=== PATIENT | male | born 1960 | race Caucasian/White ===

== ENCOUNTER → 2020-11-24 | Outpatient (CLI) | payer OTHER ==
[2020-11-24 15:11] LABS: Appearance,Urine Clear (Clear); Bilirubin,Urine Negative (Negative); Blood,Urine Negative (Negative); Color,Urine Yellow; Glucose,Urine (UA) Negative (Negative); HCT 45.6 % (39.0-53.0); HGB 16.2 gm/dL (13.0-17.5); Ketones,Urine Negative (Negative); Leukocyte Esterase,Urine Negative (Negative); MCH 32.6 pg (25.0-35.0); MCHC 35.6 g/dL (31.0-37.0); MCV 91.6 fL (80.0-100.0); Nitrite,Urine Negative (Negative); PH, Urine 6.5 (5.0-8.0); Platelet Count 206 k/uL (150-450); Protein,Urine Negative (Negative); RBC 4.98 m/uL (4.30-5.90); RDW 12.5 % (11.5-15.5); Specific Gravity,Urine 1.013 (1.001-1.035); Urobilinogen,Urine <2.0 mg/dL (<2.0); WBC 7.9 k/uL (3.8-10.6)
[2020-11-24 15:18] LABS: ALT 16 U/L (4-49); AST 21 U/L (17-59); African American GFR (CKD) >90 (>60 ml/min/1.73 sqM); Albumin 4.4 g/dL (3.5-5.0); Alkaline Phosphatase 51 U/L (38-126); Anion Gap 11 mmol/L; Blood Urea Nitrogen 21 mg/dL (9-20); Calcium 9.6 mg/dL (8.4-10.2); Carbon Dioxide 25 mmol/L (22-30); Chloride 102 mmol/L (98-107); Glucose 100 mg/dL (74-99); Non-African American GFR(CKD) >90 (>60 ml/min/1.73 sqM); Potassium 4.1 mmol/L (3.5-5.1); Sodium 138 mmol/L (137-145); Total Bilirubin 0.7 mg/dL (0.2-1.3); Total Protein 6.8 g/dL (6.3-8.2)
[2020-11-24 15:19] LABS: Partial Thromboplastin Time 23.5 sec (22.0-30.0); Prothrombin Time 10.5 sec (9.0-12.0)
== END | disposition home or self-care (01) ==
LOC: LABPAT 14:06
PROVIDERS: ATTEND Orthopaedic Surgery
DX: Z01.818 Encounter for other preprocedural examination (principal); M16.11 Unilateral primary osteoarthritis, right hip
CPT/HCPCS: 36415; 80053; 81003; 85027; 85610; 85730; 87070; 93005

== ENCOUNTER 2020-12-04 08:42 | Inpatient (IN) | payer OTHER ==
[2020-12-04] MEDS ORDERED: HEPARIN SODIUM 1,000 UN/ML (10ML VL) IV PRN (11:00)
[2020-12-04] MEDS ORDERED: HEPARIN SOD,PORK IN 0.45% NACL 25,000 UNIT in 0.45% NACL 1 250ML.BAG IV SCH (11:00)
[2020-12-04] MEDS ORDERED: HEPARIN SODIUM 1,000 UN/ML (10ML VL) IV ONE (11:00)
[2020-12-04 11:11] LABS: Basophils % (A) 1 %; Eosinophils # (A) 0.1 k/uL (0-0.7); Eosinophils % (A) 1 %; HCT 48.3 % (39.0-53.0); HGB 16.1 gm/dL (13.0-17.5); Lymphocytes # (A) 1.7 k/uL (1.0-4.8); Lymphocytes % (A) 20 %; MCH 31.2 pg (25.0-35.0); MCHC 33.4 g/dL (31.0-37.0); MCV 93.5 fL (80.0-100.0); Monocytes # (A) 0.3 k/uL (0-1.0); Monocytes % (A) 4 %; Neutrophils # (A) 6.3 k/uL (1.3-7.7); Neutrophils % (A) 73 %; Platelet Count 191 k/uL (150-450); RBC 5.17 m/uL (4.30-5.90); RDW 11.9 % (11.5-15.5); WBC 8.7 k/uL (3.8-10.6)
[2020-12-04 11:19] LABS: Partial Thromboplastin Time 23.2 sec (22.0-30.0)
[2020-12-04] MEDS ORDERED: CYCLOBENZAPRINE 10 MG TAB PO PRN (11:48)
[2020-12-04] MEDS ORDERED: FAMOTIDINE 20 MG TAB PO PRN (11:48)
[2020-12-04] MEDS ORDERED: ASPIRIN 81 MG PO ONE (12:00)
[2020-12-04] MEDS ORDERED: CLOPIDOGREL 75 MG TAB PO ONE (12:00)
[2020-12-04] MEDS ORDERED: CLOPIDOGREL 75 MG TAB PO SCH (12:00)
[2020-12-04] MEDS ORDERED: ASPIRIN 81 MG PO SCH (12:00)
[2020-12-04] MEDS: HYDROcodone/APAP 7.5-325MG 1 EACH TAB PO PRN ×2 (12:57→18:17)
--- NOTE | 2020-12-04 13:06 | US ---
EXAMINATION TYPE: US venous doppler duplex LE LT DATE OF EXAM: 12/04/2020 12:52 PM COMPARISON: NONE CLINICAL HISTORY: Chronic DVT?. Patient states history of DVT in left leg for years, is on Plavix. SIDE PERFORMED: Left TECHNIQUE: The lower extremity deep venous system is examined utilizing real time linear array sonog lulu with graded compression, doppler sonography and color-flow sonography. VESSELS IMAGED: Common Femoral Vein Deep Femoral Vein Greater Saphenous Vein * Femoral Vein Popliteal Vein Small Saphenous Vein * Proximal Calf Veins (* superficial vessels) Left Leg: Positive for chronic appearing DVT. The vessels has thickened cole, echogenic stranding a nd partially compressible. IMPRESSION: Grayscale, color doppler, spectral doppler imaging performed of the deep veins of the lo wer extremities. There is echogenic mural thrombus involving the left femoral vein and lesser extent left popliteal vein which is nonocclusive. Findings consistent with chronic left lower extremity nono cclusive DVT.
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
[2020-12-04] MEDS: HEPARIN SODIUM,PORCINE/PF 5,000 UNIT/0.5 ML SYRINGE SQ SCH (17:38)
[2020-12-05] MEDS: HEPARIN SODIUM,PORCINE/PF 5,000 UNIT/0.5 ML SYRINGE SQ SCH ×2 (00:45→08:14)
[2020-12-05] MEDS: HYDROcodone/APAP 7.5-325MG 1 EACH TAB PO PRN ×4 (00:45→17:49)
[2020-12-05] MEDS: MAGNESIUM OXIDE 400 MG TAB PO SCH (08:14)
[2020-12-05] MEDS: MULTIVITAMINS, THERA 1 EACH TAB PO SCH (08:14)
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
[2020-12-05] MEDS ORDERED: HEPARIN SODIUM 1,000 UN/ML (10ML VL) IV ONE ×2 (13:54→16:24)
[2020-12-05] MEDS ORDERED: HEPARIN SODIUM 1,000 UN/ML (10ML VL) IV PRN ×2 (13:54→16:24)
--- NOTE | 2020-12-05 13:54 | P.PN ---
Subjective Progress Note Date: 12/05/20 No new complaints today. LE US demonstrated chronic DVT of LLE. Pt reportedly has IVC filter in place. Will start heparin today, and transition to NOAC after procedure on saturday. Still pending records from PCP. Objective - Vital Signs Vital signs: Vital Signs Temp 98.4 F 12/05/20 08:00 Pulse 73 12/05/20 08:00 Resp 16 12/05/20 08:00 BP 133/83 12/05/20 08:00 Pulse Ox 94 L 12/05/20 08:00 Intake & Output 12/04/20 12/05/20 12/05/20 18:59 06:59 18:59 Weight 103.6 kg Other: # Voids 3 3 - Exam Gen: awake, alert HEENT: normocephalic, atraumatic, good hearing acuity, moist mucous membranes Resp: good air exchange, breathing comfortably with no accessory muscle use, clear to auscultation bilaterally CVS: good distal perfusion x 4, regular rate and rhythm without murmurs GI: soft, NTTP, ND, appropriate bowel sounds : no SPT, no CVAT, ortiz catheter not present MSK: no pitting edema, no clubbing, no tenderness to palpation of the calf muscles bilaterally Neuro: non-focal, moving all extremities Psych: cooperative, euthymic mood - Labs CBC & Chem 7: 12/04/20 11:00 Assessment and Plan Assessment: Chronic DVT IVC Filter We will obtain records from his primary care physician - unit coordinator is working on this. I decided to hold aspirin and Plavix as well in case of a procedure on Saturday as planned. Left lower extremity ultrasound confirmed a chronic DVT. Patient also reported having an IVC filter to ortho, though did not mention this to me during interview yesterday. Given this new information, I will start patient on a heparin gtt with plan to transition to NOAC after the procedure. Osteoarthritis of the left hip -Continue [place] when necessary for pain control -Rest of care per primary team DVT prophylaxis with heparin 3 times a day subcu Patient is a full code Thank you for this consult, please reach out to sound physicians if there are any questions or concerns.
[2020-12-05 16:43] LABS: Basophils % (A) 1 %; Eosinophils # (A) 0.1 k/uL (0-0.7); Eosinophils % (A) 1 %; HCT 48.9 % (39.0-53.0); HGB 16.7 gm/dL (13.0-17.5); Lymphocytes # (A) 2.3 k/uL (1.0-4.8); Lymphocytes % (A) 30 %; MCH 31.9 pg (25.0-35.0); MCHC 34.2 g/dL (31.0-37.0); MCV 93.2 fL (80.0-100.0); Monocytes # (A) 0.4 k/uL (0-1.0); Monocytes % (A) 5 %; Neutrophils # (A) 4.6 k/uL (1.3-7.7); Neutrophils % (A) 61 %; Platelet Count 190 k/uL (150-450); RBC 5.24 m/uL (4.30-5.90); RDW 11.9 % (11.5-15.5); WBC 7.6 k/uL (3.8-10.6)
[2020-12-05 16:51] LABS: Prothrombin Time 10.5 sec (9.0-12.0)
[2020-12-05 16:52] LABS: Partial Thromboplastin Time 24.5 sec (22.0-30.0)
[2020-12-05] MEDS: HEPARIN SOD,PORK IN 0.45% NACL 25,000 UNIT in 0.45% NACL 1 250ML.BAG IV SCH (17:23)
[2020-12-05] MEDS ORDERED: HEPARIN SODIUM 1,000 UN/ML (10ML VL) IVP ONE (23:30)
[2020-12-06] MEDS: HYDROcodone/APAP 7.5-325MG 1 EACH TAB PO PRN ×3 (00:07→20:58)
[2020-12-06] MEDS ORDERED: ACETAMINOPHEN TAB 500 MG TAB PO PRN (05:00)
[2020-12-06] MEDS ORDERED: TRANEXAMIC ACID 1,000 MG in SODIUM CHLORIDE 0.9% 100 ML IVPB PRN ×4 (05:00)
[2020-12-06] MEDS ORDERED: LACTATED RINGERS 1,000 ML IV SCH (05:00)
[2020-12-06] MEDS ORDERED: GABAPENTIN 300 MG CAP PO PRN (05:00)
[2020-12-06] MEDS ORDERED: MELOXICAM 7.5 MG TAB PO PRN (05:00)
[2020-12-06] MEDS ORDERED: DEXAMETHASONE SOD PHOSPHATE 4 MG/ML 1 ML VIAL IV ONE (06:00)
[2020-12-06] MEDS ORDERED: ONDANSETRON 4 MG/2 ML VIAL IVP ONE (06:00)
[2020-12-06] MEDS: HEPARIN SOD,PORK IN 0.45% NACL 25,000 UNIT in 0.45% NACL 1 250ML.BAG IV SCH ×2 (06:06→16:41)
[2020-12-06 06:25] LABS: Basophils % (A) 1 %; Eosinophils # (A) 0.1 k/uL (0-0.7); Eosinophils % (A) 2 %; HCT 48.8 % (39.0-53.0); HGB 16.5 gm/dL (13.0-17.5); Lymphocytes # (A) 2.2 k/uL (1.0-4.8); Lymphocytes % (A) 30 %; MCH 31.8 pg (25.0-35.0); MCHC 33.8 g/dL (31.0-37.0); MCV 93.9 fL (80.0-100.0); Mean Platelet Volume 6.7; Monocytes # (A) 0.4 k/uL (0-1.0); Monocytes % (A) 5 %; Neutrophils # (A) 4.4 k/uL (1.3-7.7); Neutrophils % (A) 61 %; Platelet Count 189 k/uL (150-450); RBC 5.19 m/uL (4.30-5.90); WBC 7.3 k/uL (3.8-10.6)
[2020-12-06] MEDS: MAGNESIUM OXIDE 400 MG TAB PO SCH (07:57)
[2020-12-06] MEDS: MULTIVITAMINS, THERA 1 EACH TAB PO SCH (07:57)
[2020-12-06] MEDS ORDERED: MIDAZOLAM 2 MG/2 ML VIAL IVP ONE (13:03)
[2020-12-06] MEDS ORDERED: NALOXONE 0.4 MG/ML 1 ML VIAL IV PRN (13:31)
[2020-12-06] MEDS ORDERED: HYDROmorphone 0.2 MG/1 ML SYRINGE IVP PRN (13:31)
[2020-12-06] MEDS ORDERED: MAGNESIUM HYDROXIDE 2,400 MG/10 ML CUP PO PRN (13:31)
[2020-12-06] MEDS ORDERED: hydrOXYzine pamoate 25 MG CAP PO PRN (13:31)
[2020-12-06] MEDS ORDERED: HYDROmorphone 0.5 MG/0.5 ML SYRINGE IVP PRN (13:31)
[2020-12-06] MEDS ORDERED: ONDANSETRON 4 MG/2 ML VIAL IVP PRN (13:31)
[2020-12-06] MEDS ORDERED: HYDROcodone/APAP 7.5-325MG 1 EACH TAB PO PRN (13:33)
--- NOTE | 2020-12-06 13:40 | P.PN ---
Subjective Progress Note Date: 12/06/20 After reviewing patients history and LE doppler from this admission, patient's indication for blood thinner is chronic DVT of LLE with IVC filter. Pt was started on heparin yesterday. Doing well today, no complaints. Pending OR. Objective - Vital Signs Vital signs: Vital Signs Temp 98.3 F 12/06/20 12:51 Pulse 74 12/06/20 12:51 Resp 18 12/06/20 12:51 BP 132/77 12/06/20 12:51 Pulse Ox 95 12/06/20 13:18 Intake & Output 12/05/20 12/06/20 12/06/20 18:59 06:59 18:59 Intake Total 360 264.815 Balance 360 264.815 Intake: Intake, IV Titration 264.815 Amount Heparin Sod,Pork in 0.45% 264.815 NaCl 25,000 unit In 0.45 % NaCl 1 250ml.bag @ 18 UNITS/KG/HR 18.648 mls/hr IV .[id number] REINALDO Rx#: [id number] Oral 360 Other: Voiding Method Toilet # Voids 3 4 - Exam Gen: awake, alert HEENT: normocephalic, atraumatic, good hearing acuity, moist mucous membranes Resp: good air exchange, breathing comfortably with no accessory muscle use, clear to auscultation bilaterally CVS: good distal perfusion x 4, regular rate and rhythm without murmurs GI: soft, NTTP, ND, appropriate bowel sounds : no SPT, no CVAT, ortiz catheter not present MSK: no pitting edema, no clubbing, no tenderness to palpation of the calf muscles bilaterally Neuro: non-focal, moving all extremities Psych: cooperative, euthymic mood - Labs CBC & Chem 7: 12/06/20 05:52 Labs: Abnormal Lab Results - Last 24 Hours (Table) 12/06/20 Range/Units 05:52 APTT 30.6 H (22.0-30.0) sec Assessment and Plan Assessment: Chronic DVT IVC Filter We will obtain records from his primary care physician - community organizer is working on this. I decided to hold aspirin and Plavix as well in case of a procedure on Saturday as planned. Left lower extremity ultrasound confirmed a chronic DVT. Patient also reported having an IVC filter to ortho, though did not mention this to me during interview yesterday. Given this new information, I will start patient on a heparin gtt with plan to transition to NOAC after the procedure. Osteoarthritis of the left hip -Continue [place] when necessary for pain control -Rest of care per primary team DVT prophylaxis with heparin 3 times a day subcu Patient is a full code Thank you for this consult, please reach out to sound physicians if there are any questions or concerns.
[2020-12-06] MEDS ORDERED: ROCURONIUM 10 MG/ML (5 ML VIAL) IV ONE (13:43)
[2020-12-06] MEDS ORDERED: SUCCINYLCHOLINE CHLORIDE 100 MG/5 ML SYR IV ONE (13:43)
[2020-12-06] MEDS ORDERED: HYDROmorphone (PF) 1 MG/ML ONE (13:43)
[2020-12-06] MEDS ORDERED: fentaNYL (PF) 50 MCG/ML 2 ML AMP ONE (13:43)
[2020-12-06] MEDS ORDERED: HEPARIN SODIUM,PORCINE 10,000 UNIT/ML 1 ML VIAL ONE (13:43)
[2020-12-06] MEDS ORDERED: SODIUM CHLORIDE 0.9% IRRIG 1,000 ML BTL IRRIGATION ONE (13:43)
[2020-12-06] MEDS ORDERED: SODIUM CHLORIDE 0.9% 100 ML BAG ONE (13:43)
[2020-12-06] MEDS ORDERED: PROPOFOL 10 MG/ML 20 ML VIAL IV ONE (13:43)
[2020-12-06] MEDS ORDERED: ceFAZolin 1,000 MG in SODIUM CHLORIDE 0.9% 1,000 ML IRRIGATION ONE (13:43)
[2020-12-06] MEDS ORDERED: MIDAZOLAM 2 MG/2 ML VIAL ONE (13:43)
[2020-12-06] MEDS ORDERED: GLYCOPYRROLATE 0.2 MG/ML 2 ML VIAL ONE (13:43)
[2020-12-06] MEDS ORDERED: TRANEXAMIC ACID 1,000 MG/10 ML VIAL ONE (13:43)
[2020-12-06] MEDS ORDERED: LIDOCAINE 1% INJ 10MG/ML (20 ML MDV) ONE (13:43)
[2020-12-06] MEDS ORDERED: NEOSTIGMINE 1 MG/ML 10 ML VIAL ONE (13:43)
[2020-12-06] MEDS ORDERED: PHENYLEPHRINE-0.9% NACL SYG 1,000 MCG/10 ML SYRINGE ONE (13:43)
[2020-12-06] MEDS: ROPIVACAINE/EPI/CLONIDINE/KET 50 ML SYRINGE MISCELLANE PRN ×2 (14:11→14:54)
--- NOTE | 2020-12-06 15:04 | P.OP ---
Date of Procedure: 12/06/20 Preoperative Diagnosis: Severe osteoarthritis right hip Postoperative Diagnosis: Severe osteoarthritis right hip Procedure(s) Performed: Right total hip arthroplasty with a direct anterior approach Implants: [employer] Polarstem standard size 4 [employer] R3, 3 hole hemispherical acetabular shell, 58 mm [employer] Reflection 6.5 mm cancellus screw, 20 mm, 25 mm [employer] R3, XLPE 20 acetabular liner [employer]hew Oxinium femoral head 36 m, +0 All components were press-fit. The articulation is Oxinium on polyethylene. Anesthesia: GETA Surgeon: Dayne Pinto [employer] D[employer] Consultant #1: Malika Magallanes Estimated Blood Loss (ml): 150 (66 mL returned with Cell Saver) Pathology: other (Femoral head) Condition: stable Disposition: PACU Indications for Procedure: After failure of conservative treatment we discussed the surgical and nonsurgical treatment options at length. Patient wishes to proceed with a total hip arthroplasty with a direct anterior approach. Complications specific to this procedure were discussed at length, including but not limited to infection, leg length discrepancy, dislocation, nerve injury, and fracture. Covid-19 was also discussed at length with the patient, and they are aware of the current policies and procedures. The patient was given the option of delaying surgery, but they elect to proceed knowing these risks. Patient is aware of all these complications and informed consent was obtained Operative Findings: The operative findings are consistent with severe osteoarthritis of the right hip Description of Procedure: Patient was seen and evaluated in the preoperative area and the consent was reviewed. The operative site was marked with a skin marker. The patient was then brought to the operating room and given preoperative antibiotics intravenously. 1 g of Tranexamic acid was also given intravenously. A general anesthetic was administered by the anesthesia department. The patient was then placed on the [place] table with the bony prominences well-padded. The hip area was then prepped with a ChloraPrep solution and draped in the usual sterile fashion. A universal timeout was then performed, which confirmed the patient's name, surgical site, ALLERGIES, and procedure being performed on the consent. Next the incision site was located at 1 cm distal to the anterior superior iliac spine along the flexion crease of the hip. The skin and subcutaneous tissues were sharply incised. Incision was carefully dissected down to the fascia overlying the tensor fascia lissett muscle. This fascia was then incised in line with the incision. Care was taken to stay laterally in order to avoid injuring the lateral femoral cutaneous nerve. Next, using blunt finger dissection, the tensor fascia lissett muscle was dissected off its investing fascia. The muscle was then carefully retracted laterally with a cobra retractor over the lateral neck of the femur. Next, the circumflex vessels were identified and cauterized using the AquaMantis device. The anterior hip capsule was then exposed. The capsule was then opened and an inverted T fashion. Cobra retractors were then placed intracapsularly. The retractors were maintained intracapsular throughout the procedure. The proximal femur was then visualized. A small amount of traction was placed on the leg. The femoral neck was then osteotomized appropriate level above the lesser trochanter. A small wedge of bone was then removed from the remaining femoral head. Next, using a corkscrew the femoral head was removed from the acetabulum. On gross visual inspection, the femoral head had complete loss of articular cartilage and multiple periarticular osteophytes. The femoral head was then measured. Attention was then turned to the acetabulum. The acetabulum was exposed and any remaining labrum was excised. Sequential reaming of the acetabulum was performed using fluoroscopic guidance until there was a good bed of bleeding cancellus bone. When the appropriate size was reached, a trial was then placed. The position and fit of the trial was checked with fluoroscopy. The trial was then removed. Then, using fluoroscopic guid ance, the final implant was impacted at 20 of anteversion and 40 of abduction, and fully seated in the acetabulum. 2 screws were then placed in the acetabulum. Again fluoroscopy was used to check position of the screws. Next, the liner was then impacted, with a 20 elevated liner located in the anterior superior quadrant. Component locking was confirmed. Attention was then directed to the femur. With the aid of the [place] table, the femur was externally rotated to approximately 130, extended, and adducted under the opposite leg. A side hook was then placed under the proximal femur, and the side hook elevator was used to elevate the proximal femur while releasing the capsule. Retractors were then placed. A capsular release was performed, as well as a release of the conjoined tendon, which afforded excellent visualization of the proximal femur. Next, a box osteotome was used to lateralize the proximal femur. A hand i cutter was then used to locate the femoral canal. Sequential broaching was then performed with appropriate size which afforded excellent fixation in the proximal femur. A trial was then placed with appropriate head and neck, and the hip was gently reduced with the aid of the [place] table. Fluoroscopy was then used to check position of the components, as well as to ensure equal leg lengths. The hip was then gently dislocated and the trials were then removed. Final implants were then impacted and the hip was again reduced. Final fluoroscopic x-rays confirmed that the components were in anatomic position, as well as equal leg lengths. The hip was also taken through range of motion, and found to be stable. The hip was then copiously irrigated with antibiotic solution with pulsatile lavage. The hip was then irrigated with Irrisept solution. The soft tissues were then injected with a ropivacaine solution, which consisted of 246.25 mg of ropivacaine, 0.5 mg of epinephrine, 30 mg of Toradol, 80 g of clonidine, and 48.45 mL of sterile water, for a total of 100 mL of fluid injected. A second dose of 1 g of Tranexamic acid was also given intravenously. Any blood collected by Cell Saver was then returned to the patient at this time. The fascia was then closed with 2-0 strata fix suture. The subcutaneous tissue was closed with 3-0 Vicryl. The subcuticular tissue was closed with 3-0 strata fix suture. The skin was then closed with Exofin skin glue. After the glue and dried, and Optifoam silver impregnated dressing was applied. The patient was then transferred to the recovery room in stable condition. The facility assistant BEAR Kelly was required due to the complexity of surgery, and the need for skilled surgical scrub technician for positioning, draping, exposure, retraction, and closure of the wound.
--- NOTE | 2020-12-06 15:42 | XR ---
Fluoroscopy HISTORY: Right hip replacement 20 seconds fluoroscopy time supplied to the referring clinician. 2 intraoperative C-arm images docum ent the procedure. See dictated report from orthopedic surgery.
[2020-12-06] MEDS: HYDROmorphone 0.5 MG/0.5 ML SYRINGE IVP PRN ×2 (15:44→15:50)
[2020-12-06] MEDS: SODIUM CHLORIDE 0.9% 1,000 ML IV SCH (16:12)
[2020-12-06] MEDS ORDERED: HEPARIN SODIUM 1,000 UN/ML (10ML VL) IV PRN (20:23)
[2020-12-06] MEDS ORDERED: HEPARIN SOD,PORK IN 0.45% NACL 25,000 UNIT in 0.45% NACL 1 250ML.BAG IV SCH (20:30)
[2020-12-06] MEDS ORDERED: HEPARIN SODIUM 1,000 UN/ML (10ML VL) IV ONE (20:30)
[2020-12-06] MEDS ORDERED: SENNOSIDES-DOCUSATE SODIUM 1 EACH TAB PO SCH (21:00)
[2020-12-06 21:21] LABS: Basophils % (A) 0 %; Eosinophils # (A) 0.1 k/uL (0-0.7); Eosinophils % (A) 1 %; HCT 43.6 % (39.0-53.0); HGB 14.5 gm/dL (13.0-17.5); Lymphocytes # (A) 0.7 k/uL (1.0-4.8); Lymphocytes % (A) 5 %; MCH 31.9 pg (25.0-35.0); MCHC 33.4 g/dL (31.0-37.0); MCV 95.6 fL (80.0-100.0); Mean Platelet Volume 6.9; Monocytes # (A) 0.4 k/uL (0-1.0); Monocytes % (A) 3 %; Neutrophils # (A) 11.3 k/uL (1.3-7.7); Neutrophils % (A) 90 %; Platelet Count 190 k/uL (150-450); RBC 4.56 m/uL (4.30-5.90); RDW 12.1 % (11.5-15.5); WBC 12.6 k/uL (3.8-10.6)
[2020-12-06 21:30] LABS: INR 1.1 (<1.2); Partial Thromboplastin Time 22.1 sec (22.0-30.0); Prothrombin Time 11.2 sec (9.0-12.0)
[2020-12-06] MEDS: HYDROmorphone 1 MG/ML 1 ML SYRINGE IVP PRN (23:58)
[2020-12-07 02:39] LABS: Basophils % (A) 0 %; Eosinophils # (A) 0.1 k/uL (0-0.7); Eosinophils % (A) 0 %; HCT 40.5 % (39.0-53.0); HGB 13.8 gm/dL (13.0-17.5); Lymphocytes # (A) 1.5 k/uL (1.0-4.8); Lymphocytes % (A) 11 %; MCHC 34.2 g/dL (31.0-37.0); MCV 93.8 fL (80.0-100.0); Monocytes # (A) 0.8 k/uL (0-1.0); Monocytes % (A) 6 %; Neutrophils # (A) 10.8 k/uL (1.3-7.7); Neutrophils % (A) 81 %; Platelet Count 182 k/uL (150-450); RBC 4.32 m/uL (4.30-5.90); WBC 13.4 k/uL (3.8-10.6)
[2020-12-07 03:04] LABS: INR 1.1 (<1.2); Partial Thromboplastin Time 30.1 sec (22.0-30.0); Prothrombin Time 11.8 sec (9.0-12.0)
[2020-12-07] MEDS: HYDROmorphone 1 MG/ML 1 ML SYRINGE IVP PRN (04:52)
[2020-12-07] MEDS: SODIUM CHLORIDE 0.9% 1,000 ML IV SCH (05:04)
[2020-12-07] MEDS: HYDROcodone/APAP 7.5-325MG 1 EACH TAB PO PRN ×2 (07:08→11:59)
[2020-12-07] MEDS: MULTIVITAMINS, THERA 1 EACH TAB PO SCH (07:08)
[2020-12-07] MEDS: MAGNESIUM OXIDE 400 MG TAB PO SCH (07:08)
[2020-12-07 07:36] VITALS: BP 106/71; PULSE 89; RESP 18; TEMP 98.5
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
--- NOTE | 2020-12-07 10:34 | P.PN ---
Subjective Progress Note Date: 12/07/20 I spoke with patient regarding his home medication regimen and recommended that he has at best a soft indication for a blood thinner or single anti-platelet, but that I did not see any reason for DAPT. Pt was advised to address this with PCP, and asked that no medication changes be made in this respect until he can address it with his PCP. Therefore, heparin gtt stopped and patient instructed to resume his ASA/Plavix starting tomorrow. Pt also has had trouble with urinary retention up to 5600cc. I advised he have follow up with urology as soon as possible and that he be discharged on ortiz catheter, to which patient is agreeable. Objective - Vital Signs Vital signs: Vital Signs Temp 98.5 F 12/07/20 07:35 Pulse 89 12/07/20 07:35 Resp 18 12/07/20 07:35 BP 106/71 12/07/20 07:35 Pulse Ox 95 12/07/20 07:35 Intake & Output 12/06/20 12/07/20 12/07/20 18:59 06:59 18:59 Intake Total 1531 445.507 64.89 Output Total 150 88291 2300 Balance 1381 -91287.493 -2235.11 Intake: IV 1051 Intake, IV Titration 65.507 64.89 Amount Heparin Sod,Pork in 0.45% 65.507 64.89 NaCl 25,000 unit In 0.45 % NaCl 1 250ml.bag @ 9. 653 UNITS/KG/HR 10.001 mls/hr IV .Q24H [facility] Rx#: [id number] Oral 480 380 Output: Urine 0 60928 2300 Straight 5625 2300 Post Void Residual 5625 Estimated Blood Loss 150 Other: Voiding Method Toilet # Voids 2 1 # Bowel Movements 2 - Exam Gen: awake, alert HEENT: normocephalic, atraumatic, good hearing acuity, moist mucous membranes Resp: good air exchange, breathing comfortably with no accessory muscle use, clear to auscultation bilaterally CVS: good distal perfusion x 4, regular rate and rhythm without murmurs GI: soft, NTTP, ND, appropriate bowel sounds : no SPT, no CVAT, ortiz catheter not present MSK: no pitting edema, no clubbing, no tenderness to palpation of the calf muscles bilaterally Neuro: non-focal, moving all extremities Psych: cooperative, euthymic mood - Labs CBC & Chem 7: 12/07/20 02:25 Labs: Abnormal Lab Results - Last 24 Hours (Table) 12/06/20 12/07/20 12/07/20 Range/Units 21:07 02:25 02:25 WBC 12.6 H 13.4 H (3.8-10.6) k/uL Neutrophils # 11.3 H 10.8 H (1.3-7.7) k/uL Lymphocytes # 0.7 L (1.0-4.8) k/uL APTT 30.1 H (22.0-30.0) sec Assessment and Plan Assessment: Chronic DVT IVC Filter We will obtain records from his primary care physician - special investigation unit investigator is working on this. I decided to hold aspirin and Plavix as well in case of a procedure on Saturday as planned. Left lower extremity ultrasound confirmed a chronic DVT. Patient also reported having an IVC filter to ortho, though did not mention this to me during interview yesterday. Given this new information, I will start patient on a heparin gtt with plan to transition to NOAC after the procedure. 12/07: Pt requested that no med changes be made upon discharge until he could discuss with his PCP. Pt discharged on ASA/Plavix per request. I did advise that he have his home meds re-evaluated as I see only a soft indication for blood thinner vs single anti-platelet at best. Osteoarthritis of the left hip -Continue [place] when necessary for pain control -Rest of care per primary team DVT prophylaxis with heparin 3 times a day subcu Patient is a full code Thank you for this consult, please reach out to sound physicians if there are any questions or concerns. Medically cleared for discharge.
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
== END 2020-12-07 12:22 | disposition home health service (06) | DRG 470 ==
LOC: 4SSUR 08:42
PROVIDERS: ADMIT Orthopaedic Surgery; ATTEND Orthopaedic Surgery
PROC: 0SR906A Replacement of Right Hip Joint with Oxidized Zirconium on Polyethylene Synthetic Substitute, Uncemented, Open Approach (ICD-10-PCS; principal; 2020-12-06 13:30)
DX: M16.11 Unilateral primary osteoarthritis, right hip (principal); I82.512 Chronic embolism and thrombosis of left femoral vein; I82.532 Chronic embolism and thrombosis of left popliteal vein; N40.1 Benign prostatic hyperplasia with lower urinary tract symptoms; R33.8 Other retention of urine; K21.9 Gastro-esophageal reflux disease without esophagitis; Z79.82 Long term (current) use of aspirin; Z79.02 Long term (current) use of antithrombotics/antiplatelets; Z79.899 Other long term (current) drug therapy; Z87.891 Personal history of nicotine dependence; Z95.828 Presence of other vascular implants and grafts; Z87.820 Personal history of traumatic brain injury; Z87.19 Personal history of other diseases of the digestive system; Z90.89 Acquired absence of other organs; Z86.59 Personal history of other mental and behavioral disorders; Z98.890 Other specified postprocedural states; Z80.6 Family history of leukemia
CPT/HCPCS: 73501; 85025; 85610; 85730; 86891; 88300

== ENCOUNTER 2020-12-19 04:34 | Emergency (ER) | payer OTHER ==
[2020-12-19] MEDS ORDERED: HYDROcodone/APAP 7.5-325MG 1 EACH TAB PO ONE (04:59)
--- NOTE | 2020-12-19 04:59 | ED ---
Male Urogenital HPI - General Chief complaint: Urogenital Stated complaint: blood in urine/catheter issue Time Seen by Provider: 12/19/20 04:37 Source: patient, RN notes reviewed, old records reviewed Mode of arrival: ambulatory Limitations: no limitations - History of Present Illness Initial comments: This is a 6-year-old male to the ER for evaluation. Patient presents today for evaluation regards to hematuria. Blood in the Petersen. Patient has fully placed secondary to recent surgery. Patient has no recent other complaints. Patient again recently had surgery here fully placed secondary to urinary retention and developed blood in urine today. MD Complaint: dysuria, other (hematuria) -: minutes(s) Location: abdomen Radiation: none Severity: moderate Severity scale (1-10): 5 Quality: aching Consistency: constant Improves with: none Worsens with: none indwelling catheter Reports: denies other symptoms - Related Data Home Medications Medication Instructions Recorded Confirmed Clopidogrel [Plavix] 75 mg PO DAILY 12/02/20 12/06/20 Aspirin EC [Ecotrin Low Dose] 81 mg PO DAILY 12/04/20 12/06/20 Cyclobenzaprine [Flexeril] 10 mg PO HS PRN 12/04/20 12/06/20 Famotidine [Pepcid] 20 mg PO DAILY PRN 12/04/20 12/06/20 Magnesium *Unknown Strength* 1 cap PO DAILY 12/04/20 12/06/20 Multivitamins, Thera [Multivitamin 1 tab PO DAILY 12/04/20 12/06/20 (formulary)] Previous Rx's Medication Instructions Recorded HYDROcodone/APAP 7.5-325MG [[place] 1 - 2 tab PO Q6H PRN #32 tab 12/06/20 7.5-325] Ondansetron Odt [Zofran Odt] 1 tab PO Q8HR PRN #10 tab 12/06/20 Sennosides [Senokot] 2 tab PO DAILY PRN #60 tablet 12/06/20 Allergies Allergy/AdvReac Type Severity Reaction Status Date / Time No Known Allergies Allergy Verified 12/19/20 04:48 Review of Systems ROS Statement: Those systems with pertinent positive or pertinent negative responses have been documented in the HPI. ROS Other: All systems not noted in ROS Statement are negative. Past Medical History Past Medical History: Deep Vein Thrombosis (DVT), GERD/Reflux, GI Bleed, Osteoarthritis (OA) Additional Past Medical History / Comment(s): closed head injury History of Any Multi-Drug Resistant Organisms: None Reported Past Surgical History: Hernia Repair, Orthopedic Surgery, Tonsillectomy Additional Past Surgical History / Comment(s): Facial surgery, [place] filter, right hip surgery Past Anesthesia/Blood Transfusion Reactions: No Reported Reaction Past Psychological History: Anxiety Smoking Status: Former smoker Past Drug Use History: None Reported - Past Family History Father Additional Family Medical History / Comment(s): Leukemia General Exam General appearance: alert, in no apparent distress Head exam: Present: atraumatic, normocephalic, normal inspection Eye exam: Present: normal appearance, PERRL, EOMI. Absent: scleral icterus, conjunctival injection, periorbital swelling ENT exam: Present: normal exam, mucous membranes moist Neck exam: Present: normal inspection. Absent: tenderness, meningismus, lymphadenopathy Respiratory exam: Present: normal lung sounds bilaterally. Absent: respiratory distress, wheezes, rales, rhonchi, stridor Cardiovascular Exam: Present: regular rate, normal rhythm, normal heart sounds. Absent: systolic murmur, diastolic murmur, rubs, gallop, clicks GI/Abdominal exam: Present: soft, normal bowel sounds. Absent: distended, tenderness, guarding, rebound, rigid Extremities exam: Present: normal inspection, full ROM, normal capillary refill. Absent: tenderness, pedal edema, joint swelling, calf tenderness Back exam: Present: normal inspection Neurological exam: Present: alert, oriented X3, CN II-XII intact Psychiatric exam: Present: normal affect, normal mood Skin exam: Present: warm, dry, intact, normal color. Absent: rash Course Vital Signs 12/19/20 04:41 Temperature 97.9 F Pulse Rate 87 Respiratory 18 Rate Blood Pressure 129/87 O2 Sat by Pulse 98 Oximetry - Reevaluation(s) Reevaluation #1: 12/19/20 04:57 Medical record is reviewed Reevaluation #2: 12/19/20 04:57 Patient reassured informed results and questions answered with urology today Medical Decision Making - Medical Decision Making 60 male to the emergency department today. Patient has significant blood in his Petersen Petersen placed for recent hip surgery. Patient concerned of blood in the ER. Patient reassured and follow-up with urology is Disposition Clinical Impression: Hematuria Disposition: HOME SELF-CARE Condition: Good Instructions (If sedation given, give patient instructions): Hematuria (ED) Is patient prescribed a controlled substance at d/c from ED?: No Referrals: Jak Sanon DO [Primary Care Provider] - 1-2 days
[2020-12-19] MEDS ORDERED: CEPHALEXIN 500MG STARTER PACK 4 CAP BTL PO STA (05:06)
[2020-12-19] MEDS ORDERED: CEPHALEXIN 500 MG CAP PO STA (05:06)
[2020-12-19 05:20] VITALS: BP 129/78; PULSE 71; RESP 22; TEMP 98
[2020-12-19 05:53] LABS: Mucus,Urine Many /hpf; RBC,Urine >182 /hpf (0-5); WBC,Urine >182 /hpf (0-5)
[2020-12-19 05:55] LABS: Appearance,Urine Bloody (Clear)
[2020-12-19 05:56] LABS: Color,Urine Red
== END 2020-12-19 05:19 | disposition home or self-care (01) ==
LOC: EC 04:34
DX: R31.9 Hematuria, unspecified (principal); R30.0 Dysuria; K21.9 Gastro-esophageal reflux disease without esophagitis; M19.90 Unspecified osteoarthritis, unspecified site; F41.9 Anxiety disorder, unspecified; Z86.718 Personal history of other venous thrombosis and embolism; Z87.891 Personal history of nicotine dependence; Z79.82 Long term (current) use of aspirin
CPT/HCPCS: 81001; 87086; 99283